=== PATIENT | male | born 1995 | race Caucasian/White ===

== ENCOUNTER 2018-03-27 20:12 | Emergency (ER) | payer OTHER, MEDICAID | END 2018-03-28 00:23 | disposition home or self-care (01) | LOC: FTE 03-28 00:23 | DX: S00.03XA Contusion of scalp, initial encounter (principal); S00.01XA Abrasion of scalp, initial encounter; W06.XXXA Fall from bed, initial encounter; Y92.9 Unspecified place or not applicable | CPT/HCPCS: 70450; 99284-25 ==

== ENCOUNTER 2018-08-09 05:11 | Inpatient (IN) | payer OTHER ==
[2018-08-09] MEDS: IPRATROPIUM (NEB) 0.5 MG/2.5 ML AMP INH (05:43)
[2018-08-09] MEDS: ALBUTEROL 0.5% (NEB) 2.5 MG/0.5 ML AMP INH (05:43)
[2018-08-09 06:03] LABS: ADD MAN DIFF? NO
[2018-08-09 06:07] LABS: BASOPHILS % 0.2 % (0.0-2.0); EOSINOPHILS % 0.1 % (0.0-7.0); HEMATOCRIT 41.9 % (42.0-52.0); HEMOGLOBIN 13.6 g/dl (14.0-18.0); LYMPHOCYTES # 0.7 10^3/ul (0.8-2.9); LYMPHOCYTES % 3.6 % (15.0-51.0); MEAN CORPUSCULAR HEMOGLOBIN 28.3 pg (29.0-33.0); MEAN CORPUSCULAR HGB CONC 32.5 g/dl (32.0-37.0); MEAN CORPUSCULAR VOLUME 87.3 fl (82.0-101.0); MEAN PLATELET VOLUME 9.2 fl (7.4-10.4); MONOCYTE # 0.9 10^3/ul (0.3-0.9); MONOCYTES % 4.7 % (0.0-11.0); NEUTROPHIL # 18.1 10^3/ul (1.6-7.5); NEUTROPHILS % 90.9 % (39.0-77.0); PLATELET COUNT 371 10^3/UL (140-415)
[2018-08-09 06:07] LABS: WHITE BLOOD COUNT 19.8 10^3/ul (4.8-10.8)
[2018-08-09 06:21] LABS: ALANINE AMINOTRANSFERASE 22 IU/L (13-69); ALBUMIN 3.9 g/dl (3.3-4.9); ALBUMIN/GLOBULIN RATIO 0.92; ALKALINE PHOSPHATASE 76 IU/L (42-121); ANION GAP 9 (5-13); ASPARTATE AMINO TRANSFERASE 27 IU/L (15-46); BILIRUBIN,INDIRECT 0.8 mg/dl (0-1.1); BILIRUBIN,TOTAL 0.8 mg/dl (0.2-1.3); BLOOD UREA NITROGEN 9 mg/dl (7-20); CHLORIDE 89 mmol/L (97-110); GLUCOSE 133 mg/dl (70-220); POTASSIUM 3.3 mmol/L (3.5-5.1); SODIUM 138 mmol/L (135-144); TOTAL PROTEIN 8.1 g/dl (6.1-8.1)
[2018-08-09] MEDS: METHYLPREDNISOLONE 125 MG INJ IV (06:24)
[2018-08-09 06:26] LABS: INR 1.05; PARTIAL THROMBOPLASTIN TIME 31.3 Sec (23.0-35.0); PROTIME 13.8 Sec (11.9-14.9); PT RATIO 1.1
[2018-08-09 06:32] LABS: AADO2 Arterial 124.5 mmHg (7.0-24.0); Arterial Base Excess 7.1 mmol/L (-3.0-3); Arterial Blood Gas Oxygen Sat 99.1 mmHG (95.0-98.0); Arterial COHb 0.6 % (0.0-3.0); Arterial Fraction of Oxyhgb 98.2 % (93.0-99.0); Arterial HCO3 35.1 mmol/L (22.0-26.0); Arterial MetHb 0.3 % (0.0-1.5); Arterial pCO2 64.4 mmhg (35-45); B-TYPE NATRIURETIC PEPTIDE 240 PG/ML (0-125); MODE MASK - SIMPLE; Site Right Brachial; TROPONIN-I 0.055 ng/ml (0.000-0.120)
[2018-08-09 06:49] LABS: CARBON DIOXIDE 40 mmol/L (21-31); CREATININE < 0.15 mg/dl (0.61-1.24); Estimated GFR > 60 mL/min (>60)
[2018-08-09] MEDS ORDERED: ONDANSETRON 4 MG INJ IV ×2 (08:00→09:00)
[2018-08-09] MEDS ORDERED: ACETAMINOPHEN 325 MG TAB PO ×2 (08:00→09:00)
[2018-08-09] MEDS: CEFTRIAXONE 1 GM/50 ML (PMX) 50 ML IVPB ×2 (08:21→09:00)
[2018-08-09] MEDS: AZITHROMYCIN 500MG/NS (PMX) 250 ML IV ×2 (08:52→09:00)
[2018-08-09] MEDS ORDERED: MAGNESIUM HYDROXIDE 30ML CUP PO (09:00)
[2018-08-09] MEDS ORDERED: DOCUSATE SODIUM 100 MG CAP PO (09:00)
[2018-08-09] MEDS ORDERED: ALBUTEROL 0.083% (NEB) 2.5 MG/3 ML AMP NEB (09:00)
[2018-08-09] MEDS ORDERED: NACL 0.9% 3 ML SYG IV (09:00)
[2018-08-09] MEDS ORDERED: NON-FORMULARY/PATIENT OWN MED (Calcium Citrate/Vitamin D (Citracal-Vitamin D 200 MG-250) 1 PO (09:00)
[2018-08-09] MEDS: ENOXAPARIN 40 MG/0.4 ML SYG SC (09:31)
[2018-08-09] MEDS: POTASSIUM CHLORIDE (SR) 20 MEQ TAB PO (09:31)
[2018-08-09] MEDS: SOD CHLORIDE 0.9% 1,000 ML IV ×2 (09:32→22:20)
[2018-08-09] MEDS ORDERED: LEVALBUTEROL (NEB) 0.63 MG/3 ML AMP HHN (13:30)
[2018-08-09] MEDS: LEVALBUTEROL (NEB) 0.63 MG/3 ML AMP HHN ×2 (14:00→19:43)
[2018-08-09] MEDS: CALCIUM/VITAMIN D (500/200) TAB PO ×2 (16:15→20:18)
[2018-08-09] MEDS ORDERED: PENDING SANTYL ORDER FOR WOUND CARE XX (18:30)
[2018-08-10] MEDS: SOD CHLORIDE 0.9% 1,000 ML IV (00:17)
[2018-08-10 06:09] LABS: WHITE BLOOD COUNT 11.9 10^3/ul (4.8-10.8)
[2018-08-10 06:09] LABS: HEMATOCRIT 36.5 % (42.0-52.0); HEMOGLOBIN 11.8 g/dl (14.0-18.0); MEAN CORPUSCULAR HEMOGLOBIN 28.4 pg (29.0-33.0); MEAN CORPUSCULAR HGB CONC 32.3 g/dl (32.0-37.0); MEAN PLATELET VOLUME 9.5 fl (7.4-10.4); PLATELET COUNT 326 10^3/UL (140-415); POSITIVE DIFF @See below; RED BLOOD COUNT 4.15 10^6/ul (4.70-6.10); RED CELL DISTRIBUTION WIDTH 13.1 % (11.5-14.5)
[2018-08-10 06:16] LABS: ADD MAN DIFF? YES
[2018-08-10] MEDS: PANTOPRAZOLE (EC) 40 MG TAB PO (06:22)
[2018-08-10 06:33] LABS: BLOOD UREA NITROGEN 11 mg/dl (7-20); CALCIUM 9.2 mg/dl (8.4-10.2); CHLORIDE 92 mmol/L (97-110); GLUCOSE 92 mg/dl (70-220); MAGNESIUM 2.2 mg/dl (1.7-2.5); SODIUM 142 mmol/L (135-144)
[2018-08-10 06:39] LABS: ANION GAP 12 (5-13)
[2018-08-10 07:54] LABS: CARBON DIOXIDE 38 mmol/L (21-31); CREATININE < 0.15 mg/dl (0.61-1.24); Estimated GFR > 60 mL/min (>60)
[2018-08-10] MEDS: LEVALBUTEROL (NEB) 0.63 MG/3 ML AMP HHN ×3 (07:56→20:32)
[2018-08-10 07:57] LABS: POTASSIUM 2.9 mmol/L (3.5-5.1)
[2018-08-10] MEDS ORDERED: CALCIUM/VITAMIN D (500/200) TAB PO (09:00)
[2018-08-10] MEDS: CEFTRIAXONE 1 GM/50 ML (PMX) 50 ML IVPB (09:45)
[2018-08-10] MEDS: CALCIUM/VITAMIN D (500/200) TAB PO ×2 (09:45→20:47)
[2018-08-10] MEDS: ENOXAPARIN 40 MG/0.4 ML SYG SC (09:56)
[2018-08-10] MEDS: AZITHROMYCIN 500MG/NS (PMX) 250 ML IV (10:38)
[2018-08-10] MEDS: INFLUENZA VIRUS VACCINE 0.5 ML (DISPENSING) IM* (10:46)
[2018-08-10] MEDS: POTASSIUM CHLORIDE (SR) 20 MEQ TAB PO ×2 (11:41→15:16)
[2018-08-10 12:53] LABS: ANISOCYTOSIS 1+ (0-0); BAND NEUTROPHILS #M 0.9 10^3/ul (0.0-0.6); BAND NEUTROPHILS % (M) 8 % (0-4); BASOPHIL #M 0.1 10^3/ul (0.0-0.0); BASOPHILS % (M) 1 % (0-2); ERYTHROBLAST% (NRBC) (M) 1 % (0-0); HYPOCHROMASIA 1+ (0-0); LYMPHOCYTES % (M) 17 % (15-51); MICROCYTOSIS 1+ (0-0); MONOCYTE #M 0.4 10^3/ul (0.3-0.9); MONOCYTES % (M) 4 % (0-11); PLATELET ESTIMATE NORMAL; POLYCHROMASIA 1+ (0-0); REACTIVE LYMPHOCYTES #M 0.1 10^3/ul (0.0-0.0); REACTIVE LYMPHOCYTES% (M) 1 % (0-0); SEG NEUT #M 8.3 10^3/ul (1.6-7.5); SEGMENTED NEUTROPHILS (M) % 69 % (39-77)
[2018-08-11] MEDS: SOD CHLORIDE 0.9% 1,000 ML IV ×4 (01:00→13:18)
[2018-08-11] MEDS: LORAZEPAM 2 MG INJ IV (03:53)
[2018-08-11 05:37] LABS: ADD MAN DIFF? NO
[2018-08-11 05:49] LABS: BASOPHILS % 0.2 % (0.0-2.0); EOSINOPHILS % 0.1 % (0.0-7.0); HEMATOCRIT 41.5 % (42.0-52.0); HEMOGLOBIN 13.3 g/dl (14.0-18.0); LYMPHOCYTES # 1.6 10^3/ul (0.8-2.9); LYMPHOCYTES % 8.8 % (15.0-51.0); MEAN CORPUSCULAR HEMOGLOBIN 28.3 pg (29.0-33.0); MEAN CORPUSCULAR VOLUME 88.3 fl (82.0-101.0); MEAN PLATELET VOLUME 9.5 fl (7.4-10.4); MONOCYTES % 5.4 % (0.0-11.0); NEUTROPHIL # 15.1 10^3/ul (1.6-7.5); NEUTROPHILS % 84.9 % (39.0-77.0); PLATELET COUNT 413 10^3/UL (140-415); RED CELL DISTRIBUTION WIDTH 13.2 % (11.5-14.5)
[2018-08-11 05:49] LABS: WHITE BLOOD COUNT 17.8 10^3/ul (4.8-10.8)
[2018-08-11 06:05] LABS: MAGNESIUM 2.2 mg/dl (1.7-2.5)
[2018-08-11 06:05] LABS: PHOSPHORUS 3.8 mg/dl (2.5-4.9)
[2018-08-11 06:27] LABS: ANION GAP 10 (5-13); BLOOD UREA NITROGEN 3 mg/dl (7-20); CALCIUM 9.4 mg/dl (8.4-10.2); CARBON DIOXIDE 36 mmol/L (21-31); CHLORIDE 92 mmol/L (97-110); GLUCOSE 85 mg/dl (70-220); POTASSIUM 4.6 mmol/L (3.5-5.1); SODIUM 138 mmol/L (135-144)
[2018-08-11 06:35] LABS: CREATININE < 0.15 mg/dl (0.61-1.24); Estimated GFR > 60 mL/min (>60)
[2018-08-11] MEDS: PANTOPRAZOLE (EC) 40 MG TAB PO (06:49)
[2018-08-11 06:59] LABS: CREATINE KINASE 229 IU/L (23-200)
[2018-08-11 07:12] LABS: TROPONIN-I < 0.012 ng/ml (0.000-0.120)
[2018-08-11 07:20] LABS: CK-MB 6.86 ng/ml (0.0-2.4)
[2018-08-11] MEDS: LEVALBUTEROL (NEB) 0.63 MG/3 ML AMP HHN ×3 (08:01→20:45)
[2018-08-11] MEDS: ENOXAPARIN 40 MG/0.4 ML SYG SC (09:00)
[2018-08-11] MEDS: CALCIUM/VITAMIN D (500/200) TAB PO ×2 (09:00→21:36)
[2018-08-11] MEDS: CEFTRIAXONE 1 GM/50 ML (PMX) 50 ML IVPB (09:02)
[2018-08-11] MEDS: AZITHROMYCIN 500MG/NS (PMX) 250 ML IV (10:06)
[2018-08-11] MEDS: SOD CHLORIDE 0.9% 100 ML (15:19)
[2018-08-11] MEDS: IOHEXOL 100 ML (15:19)
[2018-08-11] MEDS: PIPER-TAZO 3.375 GM IV (PMX) 100 ML IVPB ×2 (15:41→21:36)
[2018-08-11] MEDS ORDERED: LORAZEPAM 4 MG/ML VIAL IV (20:00)
[2018-08-12 06:13] LABS: ADD MAN DIFF? NO
[2018-08-12 06:21] LABS: BASOPHILS % 0.3 % (0.0-2.0); EOSINOPHILS % 0.3 % (0.0-7.0); HEMATOCRIT 41.3 % (42.0-52.0); HEMOGLOBIN 12.9 g/dl (14.0-18.0); LYMPHOCYTES # 1.4 10^3/ul (0.8-2.9); LYMPHOCYTES % 11.7 % (15.0-51.0); MEAN CORPUSCULAR HGB CONC 31.2 g/dl (32.0-37.0); MEAN CORPUSCULAR VOLUME 89.8 fl (82.0-101.0); MEAN PLATELET VOLUME 9.5 fl (7.4-10.4); NEUTROPHIL # 9.5 10^3/ul (1.6-7.5); NEUTROPHILS % 79.2 % (39.0-77.0); PLATELET COUNT 385 10^3/UL (140-415); RED CELL DISTRIBUTION WIDTH 13.3 % (11.5-14.5)
[2018-08-12] MEDS: PIPER-TAZO 3.375 GM IV (PMX) 100 ML IVPB ×3 (06:37→21:18)
[2018-08-12] MEDS: PANTOPRAZOLE (EC) 40 MG TAB PO (06:37)
[2018-08-12 06:58] LABS: CREATINE KINASE 141 IU/L (23-200)
[2018-08-12 06:58] LABS: ANION GAP 10 (5-13); BLOOD UREA NITROGEN 5 mg/dl (7-20); CALCIUM 8.9 mg/dl (8.4-10.2); CARBON DIOXIDE 35 mmol/L (21-31); CHLORIDE 95 mmol/L (97-110); GLUCOSE 82 mg/dl (70-220); MAGNESIUM 2.1 mg/dl (1.7-2.5); SODIUM 140 mmol/L (135-144)
[2018-08-12 07:10] LABS: CREATININE < 0.15 mg/dl (0.61-1.24); Estimated GFR > 60 mL/min (>60)
[2018-08-12] MEDS: CALCIUM/VITAMIN D (500/200) TAB PO ×2 (08:45→21:18)
[2018-08-12] MEDS: ENOXAPARIN 40 MG/0.4 ML SYG SC (08:48)
[2018-08-12] MEDS: SOD CHLORIDE 0.9% 1,000 ML IV ×2 (08:48→17:09)
[2018-08-12] MEDS: LEVALBUTEROL (NEB) 0.63 MG/3 ML AMP HHN ×3 (09:08→20:09)
[2018-08-12] MEDS: METOPROLOL (XL) 25 MG TAB PO (19:00)
[2018-08-13] MEDS: SOD CHLORIDE 0.9% 1,000 ML IV (02:33)
[2018-08-13] MEDS: PIPER-TAZO 3.375 GM IV (PMX) 100 ML IVPB ×2 (06:39→13:17)
[2018-08-13] MEDS: PANTOPRAZOLE (EC) 40 MG TAB PO (06:39)
[2018-08-13] MEDS: LEVALBUTEROL (NEB) 0.63 MG/3 ML AMP HHN (08:22)
[2018-08-13] MEDS: METOPROLOL (XL) 25 MG TAB PO (08:59)
[2018-08-13] MEDS: CALCIUM/VITAMIN D (500/200) TAB PO (08:59)
[2018-08-13] MEDS: ENOXAPARIN 40 MG/0.4 ML SYG SC (09:00)
[2018-08-13] MEDS ORDERED: AZITHROMYCIN (40 MG/ML PO SYG) PO (11:00)
[2018-08-13] MEDS: AZITHROMYCIN 250 MG TAB PO (11:36)
[2018-08-13] MEDS ORDERED: METOPROLOL (XL) 25 MG TAB PO (21:00)
== END 2018-08-13 14:58 | disposition home or self-care (01) | DRG 871 ==
LOC: E/R 05:11 → 6WM 07:56
PROC: 4A033R1 Measurement of Arterial Saturation, Peripheral, Percutaneous Approach (ICD-10-PCS; principal; 2018-08-09)
PROC: 3E0234Z Introduction of Serum, Toxoid and Vaccine into Muscle, Percutaneous Approach (ICD-10-PCS; 2018-08-10)
DX: A41.9 Sepsis, unspecified organism (principal); J96.01 Acute respiratory failure with hypoxia; J96.02 Acute respiratory failure with hypercapnia; J18.1 Lobar pneumonia, unspecified organism; I42.9 Cardiomyopathy, unspecified; I50.40 Unspecified combined systolic (congestive) and diastolic (congestive) heart failure; J47.0 Bronchiectasis with acute lower respiratory infection; L89.159 Pressure ulcer of sacral region, unspecified stage; G71.00 Muscular dystrophy, unspecified; E87.6 Hypokalemia; D64.9 Anemia, unspecified; Z99.3 Dependence on wheelchair; Z23 Encounter for immunization
CPT/HCPCS: 36415; 36600; 71045; 71275; 80048; 80053; 82550; 82553; 82803; 83605; 83735; 83880; 84100; 84484; 85025; 85610; 85730; 87040; 87400; 90686; 93005; 93306; 94640; 94644; 94664; 96374; 97161; 97166; 99285-25